=== PATIENT | male | born 1960 | race Caucasian/White ===

== ENCOUNTER 2018-12-31 09:25 | Day surgery (SDC) | payer BC, OTHER ==
[2018-12-29 16:50] VITALS: BMI 30.7
[~2018-12-31 09:25] MED LIST: LACTATED RINGERS 1,000 ML IV SCH; LIDOCAINE 1% 20 ML VIAL (10MG/ML) FOR IV START INTRADERMA PRN
[2018-12-31 09:42] VITALS: RESP 16; TEMP 97
[2018-12-31] MEDS ORDERED: LIDOCAINE 1% INJ 10MG/ML (20 ML MDV) ONE (10:56)
[2018-12-31] MEDS ORDERED: PROPOFOL 10 MG/ML 20 ML VIAL IV ONE (10:56)
[2018-12-31] MEDS ORDERED: KETAMINE 10 MG/ML 20 ML VIAL ONE (10:56)
[2018-12-31 11:56] VITALS: BP 143/92; PULSE 72
--- NOTE | 2018-12-31 12:40 | P.PCN ---
Date of Procedure: 12/31/18 Procedure(s) Performed: Procedure: Esophagogastroduodenoscopy and biopsy. Preoperative diagnosis: Chronic reflux symptoms requiring therapy. Postoperative diagnosis: 1. Hiatal hernia with no obvious esophagitis or complicated reflux disease. 2. Mild antral gastritis. 3. Multiple biopsies obtained from the duodenum, antrum and esophagus. Preparation and sedation: Was provided by anesthesia. Brief clinical history: The patient is a 58-year-old male with chronic reflux symptoms over the years requiring medical therapy. Currently he is taking Protonix 40 mg daily with occasional symptoms despite therapy. No dysphagia or other alarm symptoms. Procedure: With the patient on his left lateral decubitus position and after informed consent and adequate sedation, I passed the Olympus-GIF H 190 video upper endoscope through the cricopharyngeus down the esophagus. GE junction was around 41 cm from the incisors and there was a 2-3 cm sliding hiatal hernia but no obvious esophagitis or complicated reflux disease. The endoscope was then passed into the stomach which was insufflated with air and inspected in detail including the retroflex view in the cardia. There was mottling and erythema in the antrum but no ulcers or erosions. Pyloric channel, duodenal bulb, post bulbar area and descending duodenum appeared within normal limits. Because of his symptoms, I obtained biopsies from the duodenum, antrum and esophagus then the endoscope was withdrawn. The patient tolerated the procedure well. Plan: The patient was reassured. Will await biopsy results. He will continue antireflux diet and measures. Would recommend keeping him on acid suppressive therapy in the least frequency and dosing required to keep his symptoms under control. H2 blockers would be preferable if his symptoms can be kept under control. I would be happy to see in the office in the future if needed. He will follow up with you as planned.
== END 2018-12-31 12:22 | disposition home or self-care (01) ==
LOC: ORWHC2ENDO 09:25
DX: K44.9 Diaphragmatic hernia without obstruction or gangrene (principal); K29.50 Unspecified chronic gastritis without bleeding; K21.0 Gastro-esophageal reflux disease with esophagitis; J45.909 Unspecified asthma, uncomplicated; F17.210 Nicotine dependence, cigarettes, uncomplicated; Z79.82 Long term (current) use of aspirin; Z79.51 Long term (current) use of inhaled steroids; Z79.899 Other long term (current) drug therapy
CPT/HCPCS: 43239; 88305

== ENCOUNTER → 2019-07-05 | Outpatient (CLI) | payer OTHER ==
--- NOTE | 2019-07-05 08:34 | MR ---
EXAMINATION TYPE: MR lumbar spine wo con DATE OF EXAM: 07/05/2019 COMPARISON: NONE HISTORY: Lumbar region radiculopathy and spinal stenosis per order. Back pain for years per patient. TECHNIQUE: Multiplanar, multisequence imaging of the lumbar spine is performed without IV contrast. FINDINGS: Sagittal images of the lumbar spine show vertebral body height to appear satisfactory. Slig ht grade 1 retrolisthesis T12 on L1. Multilevel disc desiccation. There is [id number] disc spac e narrowing and anterior spurring with heterogeneous Modic type II endplate changes T12-L1 level. Mil d disc space narrowing with annular tears L4-L5 and L5-S1 levels. The conus medullaris is normal in p osition and signal ending superior L1 level. Axial images at T12-L1 level shows moderate broad-based disc bulge effacing anterior thecal sac and m ild facet degenerative changes bilaterally. Bilateral neural foramina are patent. Axial images at L1-L2 show mild broad disc bulge and mild facet degenerative changes bilaterally. Spi nal canal is preserved. Axial images at L2-L3 level show similar mild broad disc bulge and facet degenerative changes bilater ally. Spinal canal is preserved. Axial images at L3-L4 level show mild broad disc bulge with broad-based left paracentral disc protrus ion component facing anterolaterally thecal sac on axial image 13 causing asymmetric mild left sided anterior inferior neural foraminal narrowing. Mild facet degenerative changes bilaterally are present . Axial images at the L4-L5 level show [id number] facet degenerative changes bilaterally. There i s mild/moderate broad disc bulge with central disc protrusion component effacing anterior thecal sac. Bilateral neural foramina show mild anterior inferior neural foraminal narrowing. Axial images at the L5-S1 level show mild/moderate facet degenerative changes bilaterally. There is c entral disc protrusion effacing anterior thecal sac. Bilateral neural foramina are patent. No suspicious incidental retroperitoneal findings. IMPRESSION: Multilevel degenerative changes as detailed above. Multilevel spinal canal effacement wit hout significant stenosis. No definitive exiting nerve encroachment noted.
== END | disposition home or self-care (01) ==
LOC: RADMRIMAIN 07:12
PROVIDERS: ATTEND Family Medicine
DX: M47.26 Other spondylosis with radiculopathy, lumbar region (principal)
CPT/HCPCS: 72148

== ENCOUNTER → 2019-07-08 | Outpatient (CLI) | payer OTHER ==
--- NOTE | 2019-07-14 09:57 | P.ARTDOP ---
Arterial Doppler LOWER EXTREMITY ARTERIAL DOPPLER: DATE OF SERVICE: 07/08/2019 Reason for study: Leg pain. Doppler waveforms: Multiphasic throughout on the right and the left femoral. Atypical below.. Pulse volume recording: []. Pressure gradients: Below the thigh on the right and above the low thigh on the left as well as below the knee.. Ankle-brachial indices: 0.78 on the right and 0.5 on the left. Toe pressures: [] on the right, [] on the left Impression: Mild right fem-pop disease. Moderate left fem-pop disease. Clinical correlation recommended.
== END | disposition home or self-care (01) ==
LOC: RADUSWWP 06:49
PROVIDERS: ATTEND Family Medicine
DX: M48.062 Spinal stenosis, lumbar region with neurogenic claudication (principal)
CPT/HCPCS: 93923

== ENCOUNTER 2020-08-31 06:46 | Day surgery (SDC) | payer OTHER ==
[2020-08-28 13:50] VITALS: BMI 28.5
[~2020-08-31 06:46] MED LIST changes: +LIDOCAINE 1% (10MG/ML) FOR IV START INTRADERMA PRN; -LIDOCAINE 1% 20 ML VIAL (10MG/ML) FOR IV START INTRADERMA PRN
[2020-08-31 07:10] VITALS: TEMP 97.8
[2020-08-31] MEDS ORDERED: LACTATED RINGERS 1,000 ML IV ONE (07:10)
[2020-08-31 07:18] LABS: Glucose,Whole Blood 130 mg/dL (75-99)
[2020-08-31] MEDS ORDERED: PROPOFOL 10 MG/ML 20 ML VIAL IV ONE (08:05)
--- NOTE | 2020-08-31 08:09 | P.GSHP ---
History of Present Illness H&P Date: 08/31/20 Chief Complaint: Screening colonoscopy This a 6-year-old male who presents today for screening colonoscopy. Patient denies any significant GI complaints. Past Medical History Past Medical History: Asthma, Diabetes Mellitus, GERD/Reflux Additional Past Medical History / Comment(s): HIATAL HERNIA C/O LEG CRAMPS., gout, change in bowel pattern History of Any Multi-Drug Resistant Organisms: None Reported Past Surgical History: No Surgical Hx Reported Additional Past Surgical History / Comment(s): COLONOSCOPY AGE 13. EGD. TTT 2016. maylin cataract surgery Past Anesthesia/Blood Transfusion Reactions: Motion Sickness, Postoperative Nausea & Vomiting (PONV) Smoking Status: Former smoker - Past Family History Father Family Medical History: Myocardial Infarction (ND) Brother(s) Family Medical History: Diabetes Mellitus, Myocardial Infarction (ND) Medications and Allergies Home Medications Medication Instructions Recorded Confirmed Type Ipratropium-Albuterol Nebulize 1 applic INHALATION DIRECTED PRN 04/17/16 08/28/20 History [Duoneb 0.5 mg-3 mg/3 ml Soln] Ipratropium/Albuterol Sulfate 1 - 2 puff INHALATION DIRECTED 04/17/16 History [Combivent Respimat Inhaler] PRN Fluticasone Nasal [place] [Flonase 2 spr EA NOSTRIL DAILY 12/29/18 08/28/20 History Nasal [place]] Pantoprazole Sodium [Protonix] 40 mg PO DAILY 12/29/18 08/28/20 History guaiFENesin-DM 600/30MG [Mucinex 1 each PO Q12HR PRN 12/29/18 08/28/20 History Dm] Allopurinol [Zyloprim] 100 mg PO BID 08/28/20 08/28/20 History Ascorbic Acid/Elderberry Fruit 1 each PO DAILY 08/28/20 08/28/20 History [Elderberry-Vit C 50-100 mg Chw] Cyanocobalamin (Vitamin B-12) 1,000 mcg PO DAILY 08/28/20 08/28/20 History [Vitamin B-12] Oral Diabetic Pill 1 tab PO DAILY 08/28/20 History Allergies Allergy/AdvReac Type Severity Reaction Status Date / Time No Known Allergies Allergy Verified 08/28/20 13:41 Surgical - Exam Vital Signs Temp Pulse Resp BP Pulse Ox 97.8 F 78 18 148/72 96 08/31/20 07:09 08/31/20 07:09 08/31/20 07:09 08/31/20 07:09 08/31/20 07:09 - General well developed, well nourished, no distress - Eyes PERRL - ENT normal pinna - Neck no masses - Respiratory normal expansion - Cardiovascular Rhythm: regular - Abdomen Abdomen: soft, non tender Results - Labs Abnormal Lab Results - Last 24 Hours (Table) 08/31/20 Range/Units 07:16 POC Glucose (mg/dL) 130 H (75-99) mg/dL Assessment and Plan Assessment: We'll perform screening colonoscopy
--- NOTE | 2020-08-31 08:27 | P.OP ---
Date of Procedure: 08/31/20 Preoperative Diagnosis: Screening colonoscopy Postoperative Diagnosis: Diverticulosis Procedure(s) Performed: Colonoscopy Anesthesia: MAC Surgeon: Jude Medina Pathology: none sent Condition: stable Disposition: PACU Description of Procedure: The patient's placed on the endoscopy table in the lateral position. He received IV sedation. Digital rectal exam was performed which revealed no abnormalities. The flexible colonoscope was then placed patient anus and passed throughout the entire colon. The ileocecal valve was visually is. The cecum, ascending and transverse colon appeared normal. In the descending; there is extensive diverticular changes. There is no evidence of diverticulitis. The scope was then brought back the rectum and this appeared normal. Scope withdrawn for patient.
[2020-08-31 08:49] VITALS: BP 137/76; PULSE 75; RESP 16
== END 2020-08-31 09:01 | disposition home or self-care (01) ==
LOC: ORWHC2ENDO 06:46
PROVIDERS: ATTEND Surgery
DX: Z12.11 Encounter for screening for malignant neoplasm of colon (principal); K57.30 Diverticulosis of large intestine without perforation or abscess without bleeding; K21.9 Gastro-esophageal reflux disease without esophagitis; J45.909 Unspecified asthma, uncomplicated; E11.9 Type 2 diabetes mellitus without complications; K44.9 Diaphragmatic hernia without obstruction or gangrene; M10.9 Gout, unspecified; Z98.42 Cataract extraction status, left eye; Z98.41 Cataract extraction status, right eye; Z98.890 Other specified postprocedural states; Z87.891 Personal history of nicotine dependence; Z83.3 Family history of diabetes mellitus; I25.2 Old myocardial infarction; Z79.84 Long term (current) use of oral hypoglycemic drugs; Z79.899 Other long term (current) drug therapy
CPT/HCPCS: G0121; J2704; 45378

== ENCOUNTER → 2021-02-16 | Outpatient (CLI) | payer OTHER ==
--- NOTE | 2021-02-16 07:41 | CT ---
EXAMINATION TYPE: CT brain wo con DATE OF EXAM: 02/16/2021 COMPARISON: None HISTORY: Headaches, hand numbness and loss of mental acuity post OP 5-6 surgeries in the past [address] DLP: 1162.[address] of the brain was performed. The ventricles, basal cisterns and sulci overlying the cerebral convexities demonstrate mild enlargem ent. There is no evidence for intracranial hemorrhage or sulcal effacement. There is decreased attenuation about the periventricular white matter and deep white matter of both c erebral hemispheres, compatible with chronic small vessel ischemia. Differential diagnosis does inclu de demyelination. No mass effects are seen.No midline shift. Osseous calvarium is intact. If symptoms persist consider MRI. IMPRESSION: 1. Age related atrophic and chronic small vessel ischemic change without acute intracranial process s een at this time.
== END | disposition home or self-care (01) ==
LOC: RADCTMAIN 07:14
PROVIDERS: ATTEND Family Medicine
DX: I67.82 Cerebral ischemia (principal); G31.9 Degenerative disease of nervous system, unspecified
CPT/HCPCS: 70450

== ENCOUNTER → 2021-05-08 | Outpatient (CLI) | payer OTHER ==
--- NOTE | 2021-05-08 09:41 | MR ---
EXAMINATION TYPE: MR lumbar spine wo con DATE OF EXAM: 05/08/2021 COMPARISON: NONE HISTORY: Low back pain TECHNIQUE: T1 and T2 axial and sagittal images of the lumbar spine are submitted. FINDINGS: There is no abnormal signal seen within the visualized spinal cord or paraspinal soft tissu es. At T12/L1 there is hypertrophic spurring moderate degenerative disc disease with broad-based central disc protrusion resulting in mild effacement of thecal sac. Mild bilateral foraminal encroachment and borderline canal stenosis. At L1-2 there is degenerative disc disease and circumferential disc bulging. Hypertrophic change face ts. No canal stenosis or foraminal encroachment At L2-3 there is broad-based disc bulging but no focal herniation, canal stenosis. Neural foramina pa tent. Hypertrophic change of the facets. At L3-4 there is left paracentral broad-based disc herniation with moderate effacement of thecal sac. There is hypertrophic change of the facets and ligamentum flavum. Mild bilateral foraminal At L4-5 there is broad-based disc protrusion with annular tear. Facet arthropathy and hypertrophic ch joby of the facets and ligamentum flavum. Mild to moderate canal stenosis and mild bilateral foramina l encroachment. At L5-S1 there is broad-based small central disc herniation with annular tear and moderate effacement of thecal sac. Hypertrophic change of the facets. Neural foramina remain patent. IMPRESSION: 1. Stable broad-based small central disc herniation L5-S1 with effacement of thecal sac. 2. Stable left paracentral broad-based disc herniation L3-L4. 3. Broad-based disc protrusion L4-L5 with mild to moderate canal stenosis. 4. Broad-based disc protrusion T12-L1 with effacement of thecal sac and borderline central stenosis. 5. Essentially stable multilevel degenerative disc disease and multilevel foraminal encroachment as d iscussed above.
== END | disposition home or self-care (01) ==
LOC: RADMRIMAIN 08:59
PROVIDERS: ATTEND Orthopaedic Surgery Orthopaedic Surgery of the Spine
DX: M48.061 Spinal stenosis, lumbar region without neurogenic claudication (principal); M51.27 Other intervertebral disc displacement, lumbosacral region; M51.36 Other intervertebral disc degeneration, lumbar region
CPT/HCPCS: 72148